=== PATIENT | female | born 1990 | race Caucasian/White ===

== ENCOUNTER 2025-03-06 22:20 | Emergency (ER) | payer OTHER, SELFPAY ==
--- NOTE | ~2025-03-06 | XR_ITS ---
Right Knee Technique: AP, lateral, and oblique views were obtained. Clinical History: Laceration Findings: No fracture or dislocation is seen. Osseous alignment is anatomic. Joint spaces are preserv ed without degenerative or erosive change. Soft tissues are unremarkable. No joint effusion is seen. Impression: Unremarkable right knee radiographs. Reviewed, dictated and finalized at location . Impression: Unremarkable right knee radiographs.
--- NOTE | ~2025-03-06 | XR_ITS ---
Left Hand Technique: PA, oblique, and lateral views were obtained. Clinical History: Laceration Findings: No acute fracture or dislocation is seen. Osseous alignment is anatomic. Joint spaces are p reserved. Soft tissues are unremarkable. Impression: Unremarkable left hand. Reviewed, dictated and finalized at location M. Impression: Unremarkable left hand.
[2025-03-06 22:27] VITALS: BP 110/73; PULSE 75; RESP 15; RESP 16; TEMP 36.7; O2SAT 98
[2025-03-06 22:57] LABS: Basophils Percent Auto 0.5 % (0.2-1.2); Hematocrit 39.3 % (37.0-47.0); Hemoglobin 13.2 g/dL (12.0-15.0); Immature Granulocyte Absolute 0.03 K/mm3 (0.00-0.031); Immature Granulocyte Percent A 0.5 % (0-0.5); Lymphocytes Absolute Auto 0.93 K/mm3 (0.9-3.2); Lymphocytes Percent Auto 15.4 % (18.3-44.2); Mean Corpuscular HGB Conc 33.6 g/dl (32-36); Mean Corpuscular Hemoglobin 28.6 pg (26-34); Mean Corpuscular Volume 85.2 fl (80-100); Mean Platelet Volume 8.3 fl (7.4-10.4); Monocytes Absolute Auto 0.2 K/mm3 (0.1-0.6); Monocytes Percent Auto 2.6 % (2.6-8.5); Neutrophils Absolute Auto 4.9 K/mm3 (1.3-6.7); Platelet Count Result 265 k/mm3 (150-375); Red Blood Count 4.61 M/mm3 (4.2-5.4)
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
[2025-03-06 23:08] LABS: Alanine Aminotransferase 15 U/L (6-35); Albumin Level 4.6 g/dL (3.5-5.1); Alkaline Phosphatase 51 U/L (38-126); Anion Gap 15 mmol/L (4-12); Aspartate Amino Transferase 22 U/L (14-36); Bilirubin,Total 0.3 mg/dL (0.2-1.3); Blood Urea Nitrogen 10 mg/dL (7-17); Calcium 8.8 mg/dL (8.4-10.2); Carbon Dioxide 19 mmol/L (22-30); Chloride 111 mmol/L (98-107); Estimated CRCL calculation 107 ml/min; Estimated Glomerular Filt Rate > 60; Glucose 100 mg/dL (65-110); Potassium 3.9 mmol/L (3.4-5.0); Sodium 145 mmol/L (137-145); Total Protein 7.5 g/dL (6.3-8.2)
[2025-03-06 23:09] LABS: Acetaminophen < 10 ug/mL (10-30); Ethanol 175 mg/dL (<10); Salicylate < 1.0 mg/dL (2-20)
[2025-03-06 23:34] LABS: Influenza A QL RT-PCR Negative (Negative); Influenza B QL RT-PCR Negative (Negative); RSV RNA, RT-PCR Negative (Negative); SARS-CoV-2 RNA PCR Negative (Negative)
[2025-03-06 23:38] LABS: Thyroid Stimulating Hormone 0.488 uIU/mL (0.465-4.680)
[2025-03-07] VITALS (8 sets, daily range): BP systolic 101–131; BP diastolic 71–78; PULSE 63–92; RESP 16–21; O2SAT 96–100
--- NOTE | 2025-03-07 00:26 | ECG_ITS ---
Test Date: 2025-03-07 00:26:30 Measurements Intervals Mercedes Rate: 73 P: 68 WY: 151 QRS: 42 QRSD: 101 T: 40 QT: 394 QTc: 435 Interpretive Statements SINUS RHYTHM POSSIBLE LEFT ATRIAL ENLARGEMENT DELAYED PRECORDIAL R/S TRANSITION BASELINE ARTIFACT- I, II, AVR, AVL, V1 BORDERLINE ECG No previous ECG available for comparison Electronically Signed On 03-08-2025 08:04:17 CDT by Bernabe Awan D.O.
--- NOTE | 2025-03-07 01:24 | PC.NURSE ---
This RN noted multiple small bruises on pt.
[2025-03-07 01:49] LABS: Add Urine Microscopic? NO; Appearance Urine Clear (Clear); Bilirubin Urine Negative (Negative); Blood Urine Negative (Negative); Color Urine Yellow (Yellow); Glucose Urine UA Negative (Negative); Ketones Urine Negative (Negative); Leukocyte Esterase Ur Negative LEU/UL (Negative); Nitrate Urine Negative (Negative); Protein Urine Negative (Negative); Specific Grav Ur 1.006 (1.001-1.035); Urobilinogen Urine 0.2 mg/dL (<2.0); pH Urine 5.5 (5.0-9.0)
[2025-03-07 01:58] LABS: BEDSIDEPREGUCG Negative (Negative)
[2025-03-07 02:06] LABS: Amphetamine Screen Urine Negative (Negative); Barbiturate Screen Urine Negative (Negative); Benzodiazepines Screen Urine Negative (Negative); Cannabinoid Screen Urine Negative (Negative); Cocaine Screen Urine Negative (Negative); Methadone Screen Urine Negative (Negative); Opiate Screen Urine Negative (Negative); Phencyclidine Screen Urine Negative (Negative)
[2025-03-07] MEDS: ONDANSETRON INJ 4 MG/2 ML VIAL IV PUSH (03:09)
[2025-03-07 03:36] LABS: Ethanol 71 mg/dL (<10)
--- NOTE | 2025-03-07 06:52 | PC.NURSE ---
Patient easily arousable. Patient alert, awake, and agreeable to eating breakfast and speaking with crisis. Patient updated and agreeable to current plan of care.
[2025-03-07] MEDS: PROCHLORPERAZINE EDISYLATE 10 MG/2 ML VIAL IV PUSH (06:54)
[2025-03-07] MEDS: BELLADONNA ALK/PHENOB ELIX 10 ML, MAG HYDROX/ALUMINUM HYD/SIMETH 30 ML, LIDOCAINE 2% VI... PO (06:54)
--- NOTE | 2025-03-07 07:10 | PC.NURSE ---
Patient agreeable to wait until 1000 if needed for crisis eval. Patient hopeful they will be out sooner to see her.
--- NOTE | 2025-03-07 07:15 | PC.NURSE ---
Pt wound to right knee dressed by previous shift RN
--- NOTE | 2025-03-07 07:30 | PC.NURSE ---
Patient requesting contact solution d/t dry eyes. EDP ok.
[2025-03-07] MEDS: DACRIOSE EYE IRRIGATION 118 ML BOTTLE (07:44)
== END 2025-03-07 10:09 | disposition home or self-care (01) ==
PROVIDERS: Emergency Medicine; Emergency Provider Student in an Organized Health Care Education/Training Program
DX: S71.111A Laceration without foreign body, right thigh, initial encounter (principal); S61.213A Laceration without foreign body of left middle finger without damage to nail, initial encounter; O99.345 Other mental disorders complicating the puerperium; F53.0 Postpartum depression; F10.120 Alcohol abuse with intoxication, uncomplicated; Y90.6 Blood alcohol level of 120-199 mg/100 ml; Z11.52 Encounter for screening for COVID-19; R94.31 Abnormal electrocardiogram [ECG] [EKG]; W26.0XXA Contact with knife, initial encounter
CPT/HCPCS: 12002; 36415; 73130; 73562; 80053; 80143; 80179; 80307; 81003; 81025; 82077; 84443; 85025; 87637; 93005; 96374; 96375; 99284; A9270; J0780; J2405